=== PATIENT | male | born 1985 | race Caucasian/White ===

== ENCOUNTER 2021-09-28 23:03 | Observation (INO) ==
[2021-09-29] MEDS ORDERED: SODIUM CHLORIDE 0.9% 2,000 ML IV STA (00:06)
[2021-09-29] MEDS ORDERED: ONDANSETRON 4 MG/2 ML VIAL IV STA (00:06)
[2021-09-29 01:44] LABS: Basophils # 0.1 10*3/uL (0.0-0.2); Basophils % 0.2 % (0.0-0.8); Hemoglobin 18.3 GM/DL (14.0-18.0); Immature Granulocytes % 0.8 %; Immature Granulocytes Absolute 0.22 #; Lymphocytes # 2.7 10*3/uL (1.4-4.0); Lymphocytes % 10.2 % (21.2-54.2); Mean Corpuscular HGB Conc 36.2 GM/DL (32-36); Mean Corpuscular Volume 85.8 FL (87-102); Mean Platelet Volume 8.2 FL (9.6-12.0); Monocytes % 10.1 % (1.7-12.7); Neutrophils % 78.7 % (38.7-73.9); Platelet Count 365 T/CUMM (130-400); Red Cell Distribution Width 12.8 % (9.3-17.3); White Blood Count 26.3 T/CUMM (4-12)
[2021-09-29 01:45] LABS: Hematocrit 50.6 VOL% (42.0-52.0)
[2021-09-29 01:51] LABS: Alanine Aminotransferase 24 U/L (16-61); Albumin > 5.0 G/DL (3.4-5.0); Alkaline Phosphatase 91 U/L (45-117); Aspartate Amino Transferase 19 U/L (0-37); Blood Urea Nitrogen 20 MG/DL (7-18); Calcium 11.3 MG/DL (8.5-10.1); Carbon Dioxide 24 MMOL/L (21-32); Estimated Glom Filtration Rate 9 ML/MIN; Glucose 132 MG/DL (74-106); Osmolality,Calculated 274.1 MOS/KG (273-304); Potassium 3.2 MMOL/L (3.5-5.1); Sodium 135 MMOL/L (136-145); Total Protein 9.1 G/DL (6.4-8.2)
[2021-09-29] MEDS ORDERED: POTASSIUM CHLORIDE 20 MEQ TABLET PO STA (02:00)
[2021-09-29] MEDS ORDERED: VANCOMYCIN INJ 1,000 MG in SODIUM CHLORIDE 0.9% 250 ML IV STA (02:34)
[2021-09-29 02:35] LABS: Eosinophils 1 % (0-10); Lymphocytes 16 % (20-55); Platelet Estimate Increased; Segmented Neutrophils 75 % (50-85); Stomatocytes 1+; Total Cells Counted 100
[2021-09-29] MEDS ORDERED: SODIUM CHLORIDE 0.9% 1,000 ML IV STA (03:33)
[2021-09-29 03:47] LABS: Bilirubin,Urine Small mg/dL (Negative); Blood, Urine Negative (Negative); Glucose,Urine (UA) 50 mg/dL (Negative); Hyaline Casts,Urine 52 /LPF (0-3); Ketones,Urine 20 mg/dL (Negative); Mucus,Urine Many /LPF (Occasional); Nitrite,Urine Negative (Negative); Protein,Urine >=500 MG/DL; Urine Appearance Slightly Hazy (Clear); Urine Color Amber (Yellow); Urine Specific Gravity 1.037 (1.001-1.035)
[2021-09-29 04:06] LABS: Barbiturates Screen,Urine Negative (Negative); Benzodiazepines Screen,Urine Negative (Negative); Cannabinoid Screen,Urine Positive (Negative); Opiate Screen,Urine Negative (Negative); Phencyclidine Screen,Urine Negative (Negative)
[2021-09-29] MEDS ORDERED: GLUCAGON 1 MG VIAL IM PRN (04:53)
[2021-09-29] MEDS ORDERED: LACTULOSE 20 GM/30 ML UDCUP PO STA (04:53)
[2021-09-29] MEDS ORDERED: ACETAMINOPHEN 325 MG TABLET PO PRN (04:53)
[2021-09-29] MEDS ORDERED: SIMETHICONE CHEW 125 MG TABLET PO PRN (04:53)
[2021-09-29] MEDS ORDERED: LEVOFLOXACIN INJ 500 MG/100 ML PREMIX IV ONE (05:00)
[2021-09-29] MEDS ORDERED: DEXTROSE 10% 250 ML BAG IV PRN (05:18)
[2021-09-29] MEDS: SODIUM CHLORIDE 0.9% 1,000 ML IV SCH ×3 (06:45→19:07)
[2021-09-29] MEDS ORDERED: POTASSIUM CHLORIDE 20 MEQ TABLET PO ONE (07:26)
[2021-09-29] MEDS: ENOXAPARIN 30 MG/0.3 ML SYRINGE SUBCUT SCH (08:40)
[2021-09-29] MEDS: ONDANSETRON 4 MG/2 ML VIAL IV PRN (08:59)
[2021-09-29] MEDS: PANTOPRAZOLE 40 MG VIAL IV SCH (09:00)
[2021-09-29 12:34] LABS: Basophils # 0.1 10*3/uL (0.0-0.2); Basophils % 0.2 % (0.0-0.8); Hematocrit 44.3 VOL% (42.0-52.0); Hemoglobin 15.5 GM/DL (14.0-18.0); Immature Granulocytes % 0.8 %; Immature Granulocytes Absolute 0.18 #; Lymphocytes # 2.2 10*3/uL (1.4-4.0); Mean Corpuscular Volume 90.8 FL (87-102); Mean Platelet Volume 8.3 FL (9.6-12.0); Monocytes % 9.8 % (1.7-12.7); Neutrophils % 79.2 % (38.7-73.9); Platelet Count 251 T/CUMM (130-400); Red Blood Count 4.88 MC/CUMM (3.8-5.5); Red Cell Distribution Width 13.1 % (9.3-17.3); White Blood Count 21.8 T/CUMM (4-12)
[2021-09-29 12:51] LABS: Albumin 3.8 G/DL (3.4-5.0); Bilirubin,Total 1.4 MG/DL (0.20-1.00); Osmolality,Calculated 276.7 MOS/KG (273-304); Potassium 3.6 MMOL/L (3.5-5.1); Total Protein 6.9 G/DL (6.4-8.2)
[2021-09-29 13:48] LABS: Lymphocytes 14 % (20-55); Segmented Neutrophils 79 % (50-85); Total Cells Counted 100
[2021-09-29 13:49] LABS: Atypical Lymphocytes Few; Platelet Estimate Normal
[2021-09-29 13:52] LABS: Polychromasia Few
[2021-09-29] MEDS ORDERED: INFLUENZA VIRUS VACCINE 0.5 ML SYRINGE IM ONE (18:47)
[2021-09-30] MEDS: ONDANSETRON 4 MG/2 ML VIAL IV PRN (00:36)
[2021-09-30] MEDS: SODIUM CHLORIDE 0.9% 1,000 ML IV SCH ×2 (00:37→09:08)
[2021-09-30 06:34] LABS: Albumin 3.4 G/DL (3.4-5.0); Bilirubin,Total 1.4 MG/DL (0.20-1.00); Calcium 8.8 MG/DL (8.5-10.1); Osmolality,Calculated 273.7 MOS/KG (273-304); Potassium 3.5 MMOL/L (3.5-5.1); Total Protein 6.5 G/DL (6.4-8.2)
[2021-09-30 06:35] LABS: Basophils # 0.1 10*3/uL (0.0-0.2); Basophils % 0.5 % (0.0-0.8); Eosinophils # 0.1 10*3/uL (0.0-0.87); Eosinophils % 0.4 % (0.00-10.9); Hematocrit 42.5 VOL% (42.0-52.0); Hemoglobin 14.7 GM/DL (14.0-18.0); Immature Granulocytes % 0.6 %; Immature Granulocytes Absolute 0.09 #; Lymphocytes # 2.9 10*3/uL (1.4-4.0); Lymphocytes % 19.3 % (21.2-54.2); Mean Corpuscular HGB Conc 34.6 GM/DL (32-36); Mean Corpuscular Volume 91.2 FL (87-102); Mean Platelet Volume 9.2 FL (9.6-12.0); Monocytes % 11.2 % (1.7-12.7); Platelet Count 234 T/CUMM (130-400); Red Blood Count 4.66 MC/CUMM (3.8-5.5); Red Cell Distribution Width 12.9 % (9.3-17.3); White Blood Count 15.1 T/CUMM (4-12)
[2021-09-30] MEDS ORDERED: LEVOFLOXACIN INJ 500 MG/100 ML PREMIX IV SCH (08:00)
[2021-09-30] MEDS: ENOXAPARIN 30 MG/0.3 ML SYRINGE SUBCUT SCH (09:09)
[2021-09-30] MEDS: PANTOPRAZOLE 40 MG VIAL IV SCH (09:09)
[2021-09-30 12:14] VITALS: BP 130/68
[2021-10-01] MEDS ORDERED: LEVOFLOXACIN INJ 250 MG/50 ML PREMIX IV SCH (09:00)
== END 2021-09-30 15:20 | disposition home or self-care (01) ==
LOC: N.ED 23:03 → N.EDINP 23:03 → SUATTDRO 09-29 04:53 → N.3E 09-29 16:06
PROVIDERS: ADMIT Internal Medicine; ATTEND Hospitalist